=== PATIENT | female | born 1940 | race Caucasian/White ===

== ENCOUNTER → 2018-09-23 | Outpatient (CLI) | payer MEDICARE, OTHER ==
--- NOTE | 2018-09-23 12:21 | RADIOLOGY REPORT (SQ) ---
EXAM DESCRIPTION: MRI LUMBAR SPINE WITHOUT COMPLETED DATE/TIME: 09/23/2018 11:37 am REASON FOR STUDY: LOW BACK PAIN (M54.5) M54.5 LOW BACK PAIN COMPARISON: None. TECHNIQUE: Sagittal and Axial imaging includes T1, T2, STIR and gradient echo sequences. Coronal T2/ HASTE imaging. LIMITATIONS: None. FINDINGS: VISUALIZED UPPER ABDOMEN: Limited evaluation. No acute or suspicious findings suggested. SEGMENTATION: No transitional anatomy. The lowest well-developed disc space is labeled L5-S1. ALIGNMENT: Mild grade 1 anterolisthesis of L4 on L 5. Mild scoliosis. VERTEBRAE: Intact. BONE MARROW: Normal. No marrow replacement or reactive changes. DISC SIGNAL: Decreased height and signal. POSTERIOR ELEMENTS: Generally intact. No pars defect evident. HARDWARE: None in the spine. CORD AND CONUS: Normal in size and signal intensity. Conus at the appropriate level. SOFT TISSUES: No aortic aneurysm seen. No bulky retroperitoneal adenopathy or mass. No paraspinal mas s or fluid. L1-L2: No significant spinal stenosis or exit foraminal stenosis. L2-L3: No significant spinal stenosis or exit foraminal stenosis. L3-L4: Mild diffuse posterior disc bulge. Mild facet arthropathy. Mild spinal stenosis and exit for aminal stenosis. L4-L5: Mild diffuse posterior disc bulge. Marked facet arthropathy. Mild to moderate spinal stenosi s and moderate exit foraminal stenosis. L5-S1: Mild diffuse posterior disc bulge. Mild to moderate facet arthropathy. 9 mm cyst posterior t o the left facet joint likely due to a ganglion cyst. No significant spinal stenosis. Mild exit for aminal stenosis. LOWER THORACIC: Incompletely imaged. No stenosis seen. SACRUM: Visualized upper sacrum intact. OTHER: No other significant findings. IMPRESSION: GRADE 1 ANTEROLISTHESIS OF L 4 ON L 5. MULTILEVEL DEGENERATIVE CHANGES DESCRIBED. N O ACUTE FINDINGS. TECHNICAL DOCUMENTATION: JOB ID: [id number] [employer]- All Rights Reserved Reading location - IP/workstation name: [email or web address]
== END ==
LOC: RAD 10:40
PROVIDERS: ATTEND Orthopaedic Surgery
DX: M54.5 Low back pain (principal); M43.16 Spondylolisthesis, lumbar region
CPT/HCPCS: 72148

== ENCOUNTER → 2020-07-20 | Outpatient (CLI) | payer MEDICARE, OTHER ==
--- NOTE | 2020-07-20 15:06 | RADIOLOGY REPORT (SQ) ---
EXAM DESCRIPTION: CT RT UPPER EXTREMITY WITHOUT IMAGES COMPLETED DATE/TIME: 07/20/2020 1:26 pm REASON FOR STUDY: S42.91XA FRACTURE OF RIGHT SHOULDER GIRDLE, PART UNSPECIFIED, INITIAL ENCOU S42.91 XA FRACTURE OF RIGHT SHOULDER GIRDLE, PART UNSP, INIT COMPARISON: None. TECHNIQUE: [facility] with reformatted oblique coronal and ob lique sagittal imaging windowed for bone and soft tissues. All CT scanners at this facility use dose modulation, iterative reconstruction, and/or weight based d osing when appropriate to reduce radiation dose to as low as reasonably achievable (ALARA). [facility]: Dose Right [facility]: CareDose [facility]: Dose Right [facility]: Teradose 4D [facility]: [employer] RADIATION DOSE: CT Rad equipment meets quality standard of care and radiation dose reduction techniq ues were employed. CTDIvol: 12.4 mGy. DLP: 270 mGy-cm. mGy. LIMITATIONS: None. FINDINGS: SOFT TISSUES: There is a small joint effusion and soft tissue swelling overlying the delto id region of the shoulder. BONY ARCHITECTURE: Acute fracture of the humeral head extending to the greater tuberosity with mild d isplacement posteriorly of the greater tuberosity. Normal glenohumeral joint alignment. Clavicle an d scapula are intact. GLENOHUMERAL JOINT: Normal alignment. Small joint effusion. ACROMION AND AC JOINT: Normal alignment. No significant arthropathy. ROTATOR CUFF: Poorly visualized. GLENOID, LABRUM AND BICEPS: Poorly visualized. OTHER: No other significant finding. IMPRESSION: Acute mildly comminuted fracture of the right humeral head. No dislocation. TECHNICAL DOCUMENTATION: JOB ID: [id number] Quality ID # [id number]: Final reports with documentation of one or more dose reduction techniques (e.g., Au tomated exposure control, adjustment of the mA and/or kV according to patient size, use of iterative reconstruction technique) 2010 [employer]- All Rights Reserved Reading location - IP/workstation name: [email or web address]
== END ==
LOC: RAD 14:05
PROVIDERS: ATTEND Physician Assistant
DX: S42.91XA Fracture of right shoulder girdle, part unspecified, initial encounter for closed fracture (principal); X58.XXXA Exposure to other specified factors, initial encounter

== ENCOUNTER → 2020-08-27 | Outpatient (CLI) | payer MEDICARE, OTHER ==
--- NOTE | 2020-08-27 16:06 | RADIOLOGY REPORT (SQ) ---
EXAM DESCRIPTION: MRI RT UPPER JOINT WITHOUT IMAGES COMPLETED DATE/TIME: 08/27/2020 10:07 am REASON FOR STUDY: M25.511 PAIN IN RIGHT SHOULDER M25.511 PAIN IN RIGHT SHOULDER COMPARISON: CT from July. TECHNIQUE: Right shoulder images acquired and stored on PACS. Multiplanar imaging to include fat sen sitive sequences such as T1, water sensitive sequences such as FST2/STIR, cartilage sensitive sequenc es such as FSPD/gradient-echo sequences. LIMITATIONS: Mild motion artifact. FINDINGS: BONE MARROW AND CORTEX: Known fracture comminuted involving the humeral head with extensio n into the greater tuberosity and humeral neck. Associated marrow edema. JOINT OR BURSAL EFFUSION: Joint effusion. GLENO-HUMERAL ARTICULATION: No subluxation or dislocation or focal chondral lesions. ACROMION AND AC JOINT: Moderate AC overgrowth, predominantly dorsal. No significant acromial spurs . ROTATOR CUFF AND INTERVAL: Distal cuff vein is severely attenuated and thinned. Consistent with sign ificant tear, at least some of which is full-thickness. Slight retraction of fibers. There is atrop hy in the supraspinatus and infraspinatus muscles. Edema tracks back along the cuff muscles generall y. LABRUM AND BICEPS LABRAL COMPLEX: Suspect some degenerative signal. Biceps tendon without evidence of disruption. REMAINDER OF LABRUM AND IGHL : Poorly assessed. PERIARTICULAR AND ADJACENT SOFT TISSUES: No masses or abnormal nodes. OTHER: No other significant finding. IMPRESSION: 1. Known proximal humerus fracture. 2. Cuff disease including at least some component of full thickness tear with retraction and atrophy. TECHNICAL DOCUMENTATION: JOB ID: [id number] 2010 [employer]- All Rights Reserved Reading location - IP/workstation name: [email or web address]
== END ==
LOC: RAD 09:16
PROVIDERS: ATTEND Physician Assistant
DX: S42.251A Displaced fracture of greater tuberosity of right humerus, initial encounter for closed fracture (principal); X58.XXXA Exposure to other specified factors, initial encounter; M25.511 Pain in right shoulder